=== PATIENT | male | born 2000 | race Two or more races ===

== ENCOUNTER 2019-10-13 15:53 | Emergency (ER) | payer MEDICAID, OTHER ==
[~2019-10-13] VITALS: Ht 180.3 cm; Wt 90.7 kg
[2019-10-13 16:03] VITALS: BP 125/83
== END 2019-10-13 17:17 | disposition home or self-care (01) ==
LOC: ER 15:53
DX: F41.1 Generalized anxiety disorder (principal); R07.9 Chest pain, unspecified
CPT/HCPCS: 82962; 93005

== ENCOUNTER 2020-02-16 11:51 | Emergency (ER) | payer MEDICAID ==
[~2020-02-16] VITALS: Ht 180.3 cm; Wt 90.7 kg
[2020-02-16 12:04] VITALS: BP 136/86
[2020-02-16] MEDS ORDERED: cefTRIAXone SOD 1,000 MG VL IM ONE (12:45)
== END 2020-02-16 13:01 | disposition home or self-care (01) ==
LOC: ER 11:51
DX: J03.90 Acute tonsillitis, unspecified (principal)
CPT/HCPCS: 96372; 99283; J0696

== ENCOUNTER 2020-11-17 16:00 | Emergency (ER) | payer MEDICAID ==
[~2020-11-17] VITALS: Ht 180.3 cm; Wt 88.5 kg
[2020-11-17] MEDS ORDERED: IPRATROPIUM BROM 0.5 MG/2.5ML INH SOL NEB ONE (18:30)
[2020-11-17] MEDS ORDERED: ALBUTEROL SULF 2.5 MG/0.5ML(0.5%) NEB SOLN NEB ONE (18:30)
[2020-11-17 20:19] VITALS: BP 133/89
== END 2020-11-17 20:44 | disposition home or self-care (01) ==
LOC: ER 16:00
DX: J45.909 Unspecified asthma, uncomplicated (principal)
CPT/HCPCS: 71045; 94640; 99283; J7644

== ENCOUNTER 2024-03-03 04:25 | Emergency (ER) | payer MEDICAID ==
[~2024-03-03] VITALS: Ht 180.3 cm; Wt 88.5 kg
[2024-03-03 04:42] VITALS: BP 115/74; PULSE 58; RESP 20; TEMP 97.5; O2SAT 99
[2024-03-03] MEDS ORDERED: IBUP-1454 PO (06:33)
[2024-03-03] MEDS ORDERED: LIDO5DIS21 TOP (06:33)
== END 2024-03-03 06:50 | disposition home or self-care (01) ==
LOC: ER 04:25
DX: M94.0 Chondrocostal junction syndrome [Tietze] (principal); F15.90 Other stimulant use, unspecified, uncomplicated; Z79.1 Long term (current) use of non-steroidal anti-inflammatories (NSAID); Z79.899 Other long term (current) drug therapy
CPT/HCPCS: 71101